=== PATIENT | male | born 1980 | race Caucasian/White ===

== ENCOUNTER 2016-12-05 11:22 | Emergency (ER) | payer OTHER ==
[~2016-12-05] VITALS: Ht 180.3 cm; Wt 109.0 kg
[~2016-12-05 11:22] MED LIST: Z.0.NO CURRENT MEDS
[2016-12-05 11:24] VITALS: BP 134/72; PULSE 50; RESP 18; TEMP 98.5; O2SAT 98
--- NOTE | 2016-12-05 12:01 | PD ---
HPI Chief Complaint: Laceration/Skin Injury Time Seen by Provider: 11:40 Travel History International Travel<30 days: No Contact w/Intl Traveler<30days: No Traveled to known affect area: No History of Present Illness HPI 36-year-old male presents emergency department for evaluation of a laceration to the right index finger caused by pocketknife prior to arrival. Patient reports normal sensation and full range of motion of the finger. Tetanus immunization is greater than 5 years. Bleeding is well-controlled. Pain is minimal at the site of the laceration. PFSH Past Medical History Medical History: Denies Significant Hx Medical other: Yes (fatty liver) Tetanus Vaccination: > 5 Years Influenza Vaccination: No ?: Not Past Surgical History Surgical History: No Previous Surgery Social History Alcohol Use: No Tobacco Use: No Substance Use: No Allergies-Medications (Allergen,Severity, Reaction): Coded Allergies: No Known Allergies (Verified , 12/05/16) Reported Meds & Prescriptions Reported Meds & Active Scripts Active Review of Systems Except as stated in HPI: all other systems reviewed are Neg Physical Exam Narrative GENERAL: Well-nourished, well-developed patient. SKIN: Focused skin assessment warm/dry. 2 CM laceration to right index finger lateral aspect. No tendon injury visualized. HEAD: Normocephalic. EYES: No scleral icterus. No injection or drainage. MUSCULOSKELETAL: No cyanosis, or edema. Right hand:2 CM laceration to right index finger lateral aspect. No tendon injury visualized. Patient is able to flex and extend the finger against resistance. Normal sensation. Brisk cap refill. Data Data Last Documented VS Vital Signs Date Time Temp Pulse Resp B/P (MAP) Pulse Ox O2 Delivery O2 Flow Rate FiO2 12/05/16 11:24 98.5 50 18 134/72 (92) 98 Orders Orders Tetanus/Diphtheria Tox Adult (Tetanus/Di (12/05/16 12:30) MDM Medical Decision Making Medical Screen Exam Complete: Yes Emergency Medical Condition: Yes Differential Diagnosis Finger LAC, tendon laceration, abrasion Narrative Course 36-year-old male presents emergency department for evaluation of laceration to the right index finger. No tendon injury is visualized. Patient has full range of motion of the finger and normal sensation. Wound will be repaired in the ED. Patient be referred to follow up with PCP for recheck and suture removal. Patient verbalizes understanding and agrees to plan Procedures Procedure Narrative LACERATION LOCATION: Right index finger LENGTH: 2 cm NUMBER OF STITCHES/VIJI: [3] REPAIR: The area of the laceration was prepped with Betadine and sterilely draped. Digital block performed with 1% lidocaine. The wound was copiously irrigated and explored without evidence of foreign body, tendon injury or neurovascular injury. The wound was closed using 4-0 Ethilon. This was a single layer repair. A sterile dressing was applied. The patient was advised to keep the dressing clean and dry. Patient tolerated the procedure well. Diagnosis Primary Impression: Finger laceration Qualified Codes: S61.210A - Laceration without foreign body of right index finger without damage to nail, initial encounter Referrals: Primary Care Physician Additional Instructions: Sutures need to be removed in 7-10 days. Do not submerge the wound in water. He may begin showering tomorrow. Cleansed the area with soap and water and apply clean dressing daily. Return to the emergency department if he developed new or worsening symptoms Disposition: 01 DISCHARGE HOME Condition: Stable Marianne Duran Dec 05, 2016 12:01
[2016-12-05] MEDS ORDERED: TETANUS/DIPHTHERIA TOXOID ADULT 0.5 ML VIAL IM ONE (12:30)
== END 2016-12-05 12:59 | disposition home or self-care (01) ==
LOC: PHEFT 11:22
DX: S61.210A Laceration without foreign body of right index finger without damage to nail, initial encounter (principal); W26.0XXA Contact with knife, initial encounter; Z23 Encounter for immunization
CPT/HCPCS: 12001; 90471; 90714